=== PATIENT | female | born 1940 | race Caucasian/White ===

== ENCOUNTER → 2016-08-04 | Outpatient (REF) | payer MEDICARE, OTHER ==
[~2016-08-04] MED LIST: ATOR20TA PO; CALC-140 PO; KETO5DRO2 OP; OLME1TAB PO; OLME1TAB3 PO; OMEG300C3 PO; POTA20TA7 PO
[2016-08-04 11:53] LABS: ANION GAP 12.9 MEQ/L (3-15)
== END ==
LOC: LAB 10:47
PROVIDERS: ATTEND Nurse Practitioner Family
DX: I10 Essential (primary) hypertension (principal)
CPT/HCPCS: 80048